=== PATIENT | female | born 1995 | race African-American/Black ===

== ENCOUNTER 2017-05-18 07:19 | Emergency (ER) | END 2017-05-18 09:51 | disposition home or self-care (01) | DX: S20.222A Contusion of left back wall of thorax, initial encounter (principal); V09.29XA Pedestrian injured in traffic accident involving other motor vehicles, initial encounter | CPT/HCPCS: 71020; Z7502; Z7610 ==

== ENCOUNTER 2017-09-30 13:26 | Emergency (ER) | END 2017-09-30 15:59 | disposition home or self-care (01) ==